=== PATIENT | female | born 1955 | race Caucasian/White ===

== ENCOUNTER 2018-01-03 11:08 | Outpatient (CLI) | payer OTHER | END 2018-01-03 11:09 | disposition home or self-care (01) | LOC: BICRAD 11:08 | PROVIDERS: ATTEND Family Medicine | DX: R07.81 Pleurodynia (principal) ==

== ENCOUNTER 2018-05-15 09:01 | Outpatient (CLI) | payer OTHER | END 2018-05-15 09:02 | disposition home or self-care (01) | LOC: BICMAMMO 09:01 | PROVIDERS: ATTEND Internal Medicine Hematology & Oncology | DX: Z08 Encounter for follow-up examination after completed treatment for malignant neoplasm (principal); Z85.3 Personal history of malignant neoplasm of breast | CPT/HCPCS: 77066; G0279 ==

== ENCOUNTER 2018-05-19 12:14 | Outpatient (CLI) | payer OTHER | END 2018-05-19 12:15 | disposition home or self-care (01) | LOC: BICULT 12:14 | DX: R22.1 Localized swelling, mass and lump, neck (principal) | CPT/HCPCS: 76536 ==

== ENCOUNTER 2018-07-08 08:46 | Outpatient (CLI) | payer OTHER ==
--- NOTE | 2018-07-08 14:17 | CT ---
POST CONTRAST SOFT TISSUE NECK CT: History: Past medical history of sialadenitis. Bilateral neck swelling x two months. Comparison: None. Technique: Post contrast soft tissue neck CT is performed in the axial plane. Reformatted images are submitted for interpretation. FINDINGS: Adequate aeration of the visualized paranasal sinuses and mastoid air cells. Visualized brain parenchyma is unremarkable. Aerodigestive tract is patent. No mucosal abnormality. Midline fatty roof of the tongue is preserved. Symmetric attenuation of the parotid and submandibular glands. There is fatty replacement of both par otid glands. Symmetric attenuation of the sternocleidomastoid muscles. Visualized upper mediastinum and lung apices are unremarkable. There is evidence of degenerative changes of uncal vertebral joints with facet hypertrophy. No eviden ce of high grade central canal stenosis. Mild/mild to moderate narrowing of the neural foramina at mu ltiple levels. IMPRESSION: 1. No CT evidence of sialadenitis. 2. No evidence of a neck mass. POS: [facility]
== END 2018-07-08 08:47 | disposition home or self-care (01) ==
LOC: BICCT 08:46
PROVIDERS: ATTEND Otolaryngology Plastic Surgery within the Head & Neck
DX: K11.20 Sialoadenitis, unspecified (principal)
CPT/HCPCS: 70491; 82565

== ENCOUNTER 2018-10-01 09:38 | Outpatient (CLI) | payer OTHER ==
--- NOTE | 2018-10-01 10:55 | BD ---
DEXA BONE DENSITY STUDY: Date: 10/01/18 INDICATION: Unspecific menopausal and perimenopausal disorder; osteoporosis screening evaluation. COMPARISON: 09/26/16. FINDINGS: Lumbar Spine: BMD (g/cm2) L1 0.922 T-Score: -0.6 Z-Score: -0.9 L2 1.070 T-Score: 0.4 Z-Score: 2.1 L3 1.133 T-Score: 0.4 Z-Score: 2.3 L4 1.098 T-Score: 0.3 Z-Score: 2.2 L1-L4 1.065 T-Score: 0.2 Z-Score: 1.9 Bone mineral density of the L1-L4 region is not appreciably changed from comparison in 2017. Left Femoral Neck: 0.782 T-Score: -0.6 Z-Score: 0.9 Total Femur: 1.078 T-Score: 1.1 Z-Score: 2.3 IMPRESSION: Based on WHO criteria, the patient's bone mineral density is normal. The patient is at low risk for f racture. POS: [facility]
== END 2018-10-01 09:39 | disposition home or self-care (01) ==
LOC: BICMAMMO 09:38
PROVIDERS: ATTEND Internal Medicine Hematology & Oncology
DX: Z13.820 Encounter for screening for osteoporosis (principal); C50.312 Malignant neoplasm of lower-inner quadrant of left female breast; N95.9 Unspecified menopausal and perimenopausal disorder
CPT/HCPCS: 77080

== ENCOUNTER 2019-01-22 13:08 | Outpatient (CLI) | payer MEDICARE, OTHER ==
--- NOTE | 2019-01-22 14:44 | MMO ---
Left Breast MAMMO Unilat Diag DDI LT+ROBERTO. CLINICAL HISTORY: Patient is 63 years old and is seen for diagnostic exam and pain in the lower-outer region of the left breast. The patient has no family history of breast cancer. The patient has a history of Lumpectomy procedure revealed invasive mammary carcinoma with lobular features in the left breast in May, and Ultrasound Guided Core Biopsy procedure revealed invasive ductal left breast carcinoma in April,. VIEWS: The views performed were: left craniocaudal with tomosynthesis; left mediolateral oblique with tomosynthesis; left mediolateral; and left exaggerated craniocaudal. FILMS COMPARED: The present examination has been compared to prior imaging studies performed at [facility] on 04/15/2014, 04/24/2016, 04/30/2017, 05/15/2018 and 01/22/2019. MAMMOGRAM FINDINGS: There are scattered fibroglandular densities. Finding 1: There are stable post operative changes seen in the left breast. Finding 2: There are stable benign appearing calcifications seen in the left breast. Finding 3: There are no mammographic or sonographic abnormalities to explain the patient's breast pain. The patient is referred back to her clinician. Negative imaging findings should not preclude biopsy if clinical findings are suspicious. There are no suspicious masses, suspicious calcifications, or new areas of architectural distortion. IMPRESSION: FINDING 3: THERE ARE NO MAMMOGRAPHIC ABNORMALITIES TO EXPLAIN THE PATIENT'S BREAST PAIN. THE PATIENT IS REFERRED BACK TO HER CLINICIAN. NEGATIVE IMAGING FINDINGS SHOULD NOT PRECLUDE BIOPSY IF CLINICAL FINDINGS ARE SUSPICIOUS. A ROUTINE FOLLOW-UP MAMMOGRAM IN 1 YEAR IS RECOMMENDED. THE RESULTS OF THIS EXAM WERE SENT TO THE PATIENT. ACR BI-RADS Category 2 - Benign finding MAMMOGRAPHY NOTE: 1. A negative mammogram report should not delay a biopsy if a dominant of clinically suspicious mass is present. 2. Approximately 10% to 15% of breast cancers are not detected by mammography. 3. Adenosis and dense breasts may obscure an underlying neoplasm.
--- NOTE | 2019-01-22 14:55 | ULT ---
LIMITED LEFT BREAST ULTRASOUND: DATE: 01/22/2019. PROVIDED CLINICAL HISTORY: Left breast pain. FINDINGS: Limited sonographic interrogation was performed of the 3 o'clock position of the left breast and left axilla in the regions of patient pain. The sonographic appearance of the tissues in these regions i s normal. IMPRESSION: No sonographic or mammographic abnormalities are apparent in the region of the patient's breast pain. Negative imaging findings should not preclude further evaluation of a clinically suspicious finding . The patient is referred back to her clinician. BIRADS category 2 - benign findings. POS: [facility]
--- NOTE | 2019-01-22 15:04 | RAD ---
RIGHT KNEE 4 VIEW SERIES: INDICATION: Pain. FINDINGS: No acute fracture or dislocation. No significant joint capsular distention. There is mild osteoarth ritis. IMPRESSION: No acute osseous abnormality of the right knee. POS: [facility]
== END 2019-01-22 13:09 | disposition home or self-care (01) ==
LOC: BICMAMMO 13:08
PROVIDERS: ATTEND Family Medicine
DX: N64.4 Mastodynia (principal); R59.0 Localized enlarged lymph nodes; M25.561 Pain in right knee; Z85.3 Personal history of malignant neoplasm of breast
CPT/HCPCS: 73564; 76642; 77065; G0279

== ENCOUNTER 2019-07-29 10:17 | Outpatient (CLI) | payer MEDICARE, MEDICAID ==
--- NOTE | 2019-07-29 10:42 | ULT ---
Exam: Bilateral renal ultrasound HISTORY: Chronic kidney disease. Hypertension. COMPARISON: None FINDINGS: Right kidney: Normal cortical echotexture. No hydronephrosis. Right kidney measurements: 10.6 x 5.1 x 5.1 cm. Left kidney: Normal cortical echotexture. No hydronephrosis Left kidney measurements 9.6 x 5.3 x 5.4 cm. Urinary bladder: Normal mucosa. IMPRESSION: No hydronephrosis.
== END 2019-07-29 10:18 | disposition home or self-care (01) ==
LOC: BICULT 10:17
PROVIDERS: ATTEND Internal Medicine Nephrology
DX: I12.9 Hypertensive chronic kidney disease with stage 1 through stage 4 chronic kidney disease, or unspecified chronic kidney disease (principal); N18.3 Chronic kidney disease, stage 3 (moderate)
CPT/HCPCS: 76770

== ENCOUNTER 2020-05-19 08:07 | Outpatient (CLI) | payer MEDICARE, MEDICAID ==
--- NOTE | 2020-05-19 08:42 | MMO ---
Bilateral MAMMO Bilat Diag DDI+ROBERTO. CLINICAL HISTORY: Patient is 64 years old and is seen for diagnostic exam. The patient has no family history of breast cancer. The patient has a history of lumpectomy procedure revealed invasive mammary carcinoma with lobular features in the left breast in May, and Ultrasound guided core biopsy procedure revealed invasive ductal left breast carcinoma in April,. VIEWS: The views performed were: bilateral craniocaudal with tomosynthesis; bilateral mediolateral oblique with tomosynthesis; and bilateral mediolateral with tomosynthesis. FILMS COMPARED: The present examination has been compared to prior imaging studies performed at [facility] on 05/15/2018, 01/22/2019 and 05/18/2019. This study has been interpreted with the assistance of computer-aided detection. MAMMOGRAM FINDINGS: There are scattered fibroglandular densities. Finding 1: There are stable benign appearing calcifications seen in both breasts. Finding 2: There is a stable area of architectural distortion with associated post-surgical scar seen in the left breast. There are no suspicious masses, suspicious calcifications, or new areas of architectural distortion. IMPRESSION: THERE IS NO MAMMOGRAPHIC EVIDENCE OF MALIGNANCY. A ROUTINE FOLLOW-UP MAMMOGRAM IN 1 YEAR IS RECOMMENDED. THE RESULTS OF THIS EXAM WERE SENT TO THE PATIENT. ACR BI-RADS Category 2 - Benign finding MAMMOGRAPHY NOTE: 1. A negative mammogram report should not delay a biopsy if a dominant of clinically suspicious mass is present. 2. Approximately 10% to 15% of breast cancers are not detected by mammography. 3. Adenosis and dense breasts may obscure an underlying neoplasm. Reported by: IDANIA BHAT MD Electonically Signed: [id number]
== END 2020-05-19 08:08 | disposition home or self-care (01) ==
LOC: BICMAMMO 08:07
PROVIDERS: ATTEND Internal Medicine Hematology & Oncology
DX: Z08 Encounter for follow-up examination after completed treatment for malignant neoplasm (principal); Z85.3 Personal history of malignant neoplasm of breast
CPT/HCPCS: 77066; G0279

== ENCOUNTER 2020-05-19 08:12 | Outpatient (CLI) | payer MEDICARE, MEDICAID ==
--- NOTE | 2020-05-19 10:01 | RAD ---
CHEST 2 VIEWS: Date: 05/19/2020 HISTORY: Wheezing and shortness of breath. FINDINGS: Heart size is normal. The lungs are clear. No confluent pneumonia, overt edema, or pleural effusion. IMPRESSION: No significant acute intrathoracic disease. Stable from prior study. POS: [facility]
== END 2020-05-19 08:13 | disposition home or self-care (01) ==
LOC: BICRAD 08:12
PROVIDERS: ATTEND Family Medicine
DX: R06.2 Wheezing (principal); R06.02 Shortness of breath
CPT/HCPCS: 71046

== ENCOUNTER 2020-11-18 10:11 | Outpatient (CLI) | payer MEDICARE, MEDICAID ==
--- NOTE | 2020-11-18 18:26 | BD ---
Exam: DEXA Bone Density 11/18/20 INDICATION: Postmenopausal osteoporosis screening. COMPARISON: Prior dated 10/01/18. FINDINGS: Lumbar Spine: BMD (g/cm2) T-SCORE Z-SCORE L1 0.965 -0.2 1.5 L2 1.068 0.4 2.2 L3 1.132 0.4 2.4 L4 1.097 0.3 2.4 L1-L4 1.071 0.2 2.1 Left Femoral Neck: 0.780 -0.6 1.0 Total Femur: 1.106 1.3 2.7 When compared to the prior examination, bone mineral density of the left total hip region has improve d 2.6% from the baseline. Impression: Based on WHO criteria, patient's bone mineral density is normal. The patient's bone mineral density i s slightly improved when compared to the prior in 2019. POS: [facility]
== END 2020-11-18 10:12 | disposition home or self-care (01) ==
LOC: BICMAMMO 10:11
PROVIDERS: ATTEND Internal Medicine Hematology & Oncology
DX: Z13.820 Encounter for screening for osteoporosis (principal); N95.8 Other specified menopausal and perimenopausal disorders
CPT/HCPCS: 77080

== ENCOUNTER 2020-12-28 07:47 | Outpatient (CLI) | payer MEDICARE, MEDICAID | END 2020-12-28 07:48 | disposition home or self-care (01) | LOC: BICULT 07:47 | PROVIDERS: ATTEND Family Medicine | DX: R74.01 Elevation of levels of liver transaminase levels (principal); K76.0 Fatty (change of) liver, not elsewhere classified; K80.20 Calculus of gallbladder without cholecystitis without obstruction | CPT/HCPCS: 76705 ==

== ENCOUNTER 2021-07-05 10:03 | Outpatient (CLI) | payer MEDICARE, MEDICAID | END 2021-07-05 10:04 | disposition home or self-care (01) | LOC: BICMAMMO 10:03 | PROVIDERS: ATTEND Internal Medicine Hematology & Oncology | DX: Z08 Encounter for follow-up examination after completed treatment for malignant neoplasm (principal); Z85.3 Personal history of malignant neoplasm of breast | CPT/HCPCS: 77066; G0279 ==

== ENCOUNTER 2021-08-04 09:32 | Outpatient (CLI) | payer MEDICARE, MEDICAID ==
[2021-08-04 11:25] LABS: #Basophils 0.1 10x3/uL (0.0-0.2); #Eosinphils 0.2 10x3/uL (0.0-0.5); #Monocytes 0.9 10x3/uL (0.0-1.1); #Neutrophils 4.3 10x3/uL (1.5-8.4); %Basophils 0.9 % (0.0-2.0); %Eosinophils 2.3 % (0.0-6.0); %Lymphocytes 28.9 % (18.0-47.0); %Monocytes 11.6 % (0.0-10.0); %Neutrophils 55.5 % (40.0-75.0); Hemoglobin 13.2 g/dL (12.0-15.5); Mean Corpuscular HGB CONC 33.3 g/dL (32.0-36.0); Mean Corpuscular Hemoglobin 29.7 pg (27.0-33.0); Mean Corpuscular Volume 89.2 fl (81.6-98.3); Mean Platelet Volume 10.5 fl (7.4-10.4); Platelet Count 247 10x3/uL (150-450); RBC Distribution Width 12.9 % (11.5-14.5); Red Blood Cell (RBC) Count 4.44 10x6/uL (3.90-5.03); White Blood Cell (WBC) Count 7.8 10x3/uL (3.5-10.5)
[2021-08-04 12:14] LABS: ALT (SGPT) 22 U/L (8-55); AST (SGOT) 19 U/L (5-34); Albumin 4.3 g/dL (3.4-4.8); Alkaline Phosphatase 85 U/L (40-110); Anion Gap 17 mmol/L (10-20); BUN (Urea Nitrogen) 28 mg/dL (9.8-20.1); Bilirubin, Direct 0.1 mg/dL (0.1-0.3); Bilirubin, Total 0.4 mg/dL (0.2-1.2); Calc. Creatinine Clearance 0 mL/min (70-130); Calcium 9.2 mg/dL (7.8-10.44); Carbon Dioxide 20 mmol/L (23-31); Chloride 106 mmol/L (98-107); Globulin 3.3 g/dL (2.4-3.5); Glucose 142 mg/dL (80-115); Potassium 4.6 mmol/L (3.5-5.1); Protein, Total 7.6 g/dL (5.8-8.1); Sodium 138 mmol/L (136-145)
[2021-08-04 17:28] LABS: SARS-CoV-2 PCR by NAA Not Detected (NotDetected)
== END 2021-08-04 09:33 | disposition home or self-care (01) ==
LOC: LABBT 09:32
PROVIDERS: ATTEND Surgery
DX: Z01.818 Encounter for other preprocedural examination (principal); K80.20 Calculus of gallbladder without cholecystitis without obstruction; Z20.822 Contact with and (suspected) exposure to COVID-19
CPT/HCPCS: 80053; 80076; 85025; 93005; U0003; U0005; 93010

== ENCOUNTER 2021-08-09 05:55 | Day surgery (SDC) | payer MEDICARE, MEDICAID ==
[2021-08-08 10:03] VITALS: BMI 39.8
[2021-08-09] MEDS ORDERED: Fentanyl 100 MCG/2 ML VIAL ONE ×3 (06:50→09:58)
[2021-08-09] MEDS ORDERED: Bupivacaine 0.25% HCL 30 ML VIAL ONE (06:55)
[2021-08-09] MEDS ORDERED: Lidocaine 1% w/Epinephrine 1:100K 20 ML VIAL ONE (06:55)
[2021-08-09] MEDS ORDERED: cefOXitin Sodium/Dextrose 2 GM/50 ML BAG ONE (07:43)
[2021-08-09] MEDS ORDERED: ePHEDrine 50 MG/ML VIAL ONE (08:08)
[2021-08-09] MEDS ORDERED: Dexamethasone 20 MG/5 ML VIAL ONE (08:08)
[2021-08-09] MEDS ORDERED: Ondansetron PF 4 MG/2 ML Vial ONE (08:08)
[2021-08-09] MEDS ORDERED: Rocuronium Bromide 10 MG/ML (10ML VIAL) ONE (08:08)
[2021-08-09] MEDS ORDERED: Propofol 1,000 MG/100 ML VIAL IV ONE (08:08)
[2021-08-09] MEDS ORDERED: Ketorolac Tromethamine 30 MG/ML VIAL ONE (08:08)
[2021-08-09] MEDS ORDERED: Glycopyrrolate 0.2 MG/ML 5 ML SYRINGE ONE (08:08)
[2021-08-09] MEDS ORDERED: Midazolam HCl 2 mg/2 ml Vial ONE (08:54)
[2021-08-09] MEDS ORDERED: HYDROcodone/Acetaminophen 5/325 mg Tablet ONE (11:29)
== END 2021-08-09 11:40 | disposition home or self-care (01) ==
LOC: SDC 05:55
PROVIDERS: ATTEND Surgery
PROC: 0FT44ZZ Resection of Gallbladder, Percutaneous Endoscopic Approach (ICD-10-PCS; principal; 2021-08-09)
DX: K80.10 Calculus of gallbladder with chronic cholecystitis without obstruction (principal); I10 Essential (primary) hypertension; Z85.3 Personal history of malignant neoplasm of breast; Z79.811 Long term (current) use of aromatase inhibitors; Z79.82 Long term (current) use of aspirin; Z79.84 Long term (current) use of oral hypoglycemic drugs; Z79.899 Other long term (current) drug therapy; Z88.1 Allergy status to other antibiotic agents
CPT/HCPCS: 88304; J0694; J1100; J1885; J2250; J2405; J2704; J3010; J3490; S0020

== ENCOUNTER 2022-05-14 12:28 | Emergency (ER) | payer MEDICARE, MEDICAID ==
[2022-05-14] MEDS ORDERED: Acetaminophen 500 MG TAB ONE (13:15)
== END 2022-05-14 14:56 | disposition home or self-care (01) ==
LOC: ERS 12:28
DX: S82.61XA Displaced fracture of lateral malleolus of right fibula, initial encounter for closed fracture (principal); S80.211A Abrasion, right knee, initial encounter; I10 Essential (primary) hypertension; W10.2XXA Fall (on)(from) incline, initial encounter; Z85.3 Personal history of malignant neoplasm of breast

== ENCOUNTER 2022-07-17 10:32 | Outpatient (CLI) | payer MEDICARE, MEDICAID | END 2022-07-17 10:33 | disposition home or self-care (01) | LOC: BICMAMMO 10:32 | PROVIDERS: ATTEND Family Medicine | DX: Z12.31 Encounter for screening mammogram for malignant neoplasm of breast (principal); Z98.890 Other specified postprocedural states; Z85.3 Personal history of malignant neoplasm of breast | CPT/HCPCS: 77063; 77067 ==

== ENCOUNTER 2023-01-11 17:07 | Inpatient (IN) | payer MEDICARE, MEDICAID ==
[2023-01-11 18:10] LABS: #Basophils 0.1 thou/uL (0.0-0.2); #Eosinphils 0.2 thou/uL (0.0-0.7); #Lymphocytes 2.3 thou/uL (1.20-3.40); #Monocytes 1.1 thou/uL (0.11-0.59); #Neutrophils 8.1 thou/uL (1.40-6.50); %Basophils 0.4 % (0.0-1.0); %Eosinophils 1.8 % (0.0-10.0); %Lymphocytes 19.2 % (21.0-51.0); %Monocytes 9.4 % (0.0-10.0); %Neutrophils 69.2 % (42.0-75.0); Hemoglobin 13.8 g/dL (12.0-16.0); Mean Corpuscular HGB CONC 33.4 g/dL (32.0-36.0); Mean Corpuscular Hemoglobin 30.7 pg (27.0-31.0); Mean Corpuscular Volume 92.1 fl (78.0-98.0); Mean Platelet Volume 8.5 fL (7.4-10.4); Platelet Count 253 10x3/uL (130-400); RBC Distribution Width 12.5 % (11.5-14.5); White Blood Cell (WBC) Count 11.7 10x3/uL (4.8-10.8)
[2023-01-11 18:32] LABS: ALT (SGPT) 20 U/L (8-55); AST (SGOT) 16 U/L (5-34); Alkaline Phosphatase 92 U/L (40-110); Anion Gap 15 mmol/L (10-20); BUN (Urea Nitrogen) 42 mg/dL (9.8-20.1); Bilirubin, Total 0.3 mg/dL (0.2-1.2); Calc. Creatinine Clearance 0 mL/min (70-130); Calcium 8.7 mg/dL (7.8-10.44); Carbon Dioxide 21 mmol/L (23-31); Chloride 103 mmol/L (98-107); Estimated GFR 34; Globulin 3.2 g/dL (2.4-3.5); Glucose 97 mg/dL (80-115); Lipase 41 U/L (8-78); Protein, Total 7.2 g/dL (5.8-8.1); Sodium 134 mmol/L (136-145)
[2023-01-11] MEDS ORDERED: Aspirin Chewable 81 MG TAB ONE (19:03)
[2023-01-11] MEDS ORDERED: Dextrose 50% Abboject 50 ML SYRINGE SLOW IVP PRN (19:56)
[2023-01-11] MEDS ORDERED: HumaLOG 300 UNITS/3 ML VIAL SC PRN ×2 (19:56)
[2023-01-11] MEDS ORDERED: Dextrose 5% in Water 1,000 ML IV PRN (19:56)
[2023-01-11] MEDS ORDERED: Nitroglycerin 0.4 MG TAB (25 Tab Bottle) SL PRN (20:09)
[2023-01-11] MEDS ORDERED: Acetaminophen 325 MG TAB PO PRN (20:09)
[2023-01-11] MEDS ORDERED: Ondansetron PF 4 MG/2 ML Vial IVP PRN (20:09)
[2023-01-11] MEDS ORDERED: Ondansetron ODT 4 MG TAB PO PRN (20:09)
[2023-01-11] MEDS ORDERED: Sodium Chloride 0.9% 500 ML IV SCH (20:30)
[2023-01-11 22:04] LABS: Troponin I Less than 0.010 ng/mL (< 0.028)
[2023-01-11] MEDS: HYDROcodone/Acetaminophen 5/325 mg Tablet PO PRN (22:37)
[2023-01-12 01:16] LABS: Troponin I Less than 0.010 ng/mL (< 0.028)
[2023-01-12 04:55] LABS: #Basophils 0.1 thou/uL (0.0-0.2); #Eosinphils 0.3 thou/uL (0.0-0.7); #Lymphocytes 2.4 thou/uL (1.20-3.40); #Monocytes 1.1 thou/uL (0.11-0.59); #Neutrophils 6.3 thou/uL (1.40-6.50); %Basophils 0.6 % (0.0-1.0); %Eosinophils 2.6 % (0.0-10.0); %Lymphocytes 23.2 % (21.0-51.0); %Monocytes 11.1 % (0.0-10.0); %Neutrophils 62.5 % (42.0-75.0); Hemoglobin 13.2 g/dL (12.0-16.0); Mean Corpuscular HGB CONC 34.2 g/dL (32.0-36.0); Mean Corpuscular Hemoglobin 31.5 pg (27.0-31.0); Mean Corpuscular Volume 92.3 fl (78.0-98.0); Mean Platelet Volume 8.1 fL (7.4-10.4); Platelet Count 246 10x3/uL (130-400); RBC Distribution Width 12.6 % (11.5-14.5); Red Blood Cell (RBC) Count 4.18 mill/uL (4.20-5.40); White Blood Cell (WBC) Count 10.1 10x3/uL (4.8-10.8)
[2023-01-12 05:11] LABS: Anion Gap 14 mmol/L (10-20); BUN (Urea Nitrogen) 38 mg/dL (9.8-20.1); Calc. Creatinine Clearance 67 mL/min (70-130); Calcium 9.1 mg/dL (7.8-10.44); Carbon Dioxide 20 mmol/L (23-31); Cardiac Risk 3.6 (Less than 4.5); Chloride 106 mmol/L (98-107); Cholesterol 115 mg/dl (< 200 Desired); Estimated GFR 43; Glucose 103 mg/dL (80-115); HDL Cholesterol 32 mg/dL (>60 Neg Risk); LDL Cholesterol, Calculated 55 mg/dL; Potassium 4.1 mmol/L (3.5-5.1); Sodium 136 mmol/L (136-145); Triglycerides 138 mg/dL (Less than 150)
[2023-01-12] MEDS: Levothyroxine Sodium 112 MCG TAB PO SCH (05:37)
[2023-01-12 06:20] VITALS: BMI 40.6
[2023-01-12] MEDS: Acyclovir 400 mg Tablet PO SCH ×2 (08:00→21:39)
[2023-01-12] MEDS ORDERED: Famotidine 20 MG TAB PO SCH (09:00)
[2023-01-12] MEDS ORDERED: ADENOSINE 60 MG/20 ML SDV ONE (09:07)
[2023-01-12] MEDS: Aspirin Chewable 81 MG TAB PO SCH (11:37)
[2023-01-12] MEDS: Carvedilol 25 MG TAB PO SCH ×2 (11:37→16:50)
[2023-01-12] MEDS: HYDROcodone/Acetaminophen 5/325 mg Tablet PO PRN (11:38)
[2023-01-12] MEDS: Melatonin 3 MG TAB PO SCH (21:39)
[2023-01-12] MEDS: Simvastatin 10 MG TAB PO SCH (21:39)
[2023-01-13 05:01] LABS: #Eosinphils 0.2 thou/uL (0.0-0.7); #Lymphocytes 2.2 thou/uL (1.20-3.40); #Neutrophils 5.5 thou/uL (1.40-6.50); %Basophils 0.5 % (0.0-1.0); %Eosinophils 2.7 % (0.0-10.0); %Lymphocytes 24.7 % (21.0-51.0); %Monocytes 11.1 % (0.0-10.0); %Neutrophils 60.9 % (42.0-75.0); Mean Corpuscular HGB CONC 33.7 g/dL (32.0-36.0); Mean Corpuscular Hemoglobin 30.7 pg (27.0-31.0); Mean Platelet Volume 7.9 fL (7.4-10.4); Platelet Count 233 10x3/uL (130-400); RBC Distribution Width 12.6 % (11.5-14.5); Red Blood Cell (RBC) Count 4.24 mill/uL (4.20-5.40)
[2023-01-13 05:17] LABS: Anion Gap 12 mmol/L (10-20); BUN (Urea Nitrogen) 27 mg/dL (9.8-20.1); Calc. Creatinine Clearance 81 mL/min (70-130); Calcium 9.2 mg/dL (7.8-10.44); Carbon Dioxide 22 mmol/L (23-31); Chloride 105 mmol/L (98-107); Estimated GFR 56; Glucose 107 mg/dL (80-115); Potassium 4.1 mmol/L (3.5-5.1); Sodium 135 mmol/L (136-145)
[2023-01-13] MEDS: Levothyroxine Sodium 112 MCG TAB PO SCH (06:18)
[2023-01-13] MEDS: Cholecalciferol 1,000 UNITS (25 MCG) TAB PO SCH (09:21)
[2023-01-13] MEDS: Aspirin Chewable 81 MG TAB PO SCH (09:21)
[2023-01-13] MEDS: Carvedilol 25 MG TAB PO SCH ×2 (09:21→16:12)
[2023-01-13] MEDS: Acyclovir 400 mg Tablet PO SCH ×2 (09:21→19:25)
[2023-01-13] MEDS: Bupropion 150 MG SR TAB PO SCH (09:21)
[2023-01-13] MEDS ORDERED: Iopamidol-370 76% 500 ML MDV (1 ML CHARGE) ONE (15:48)
[2023-01-13] MEDS: HYDROcodone/Acetaminophen 5/325 mg Tablet PO PRN (19:25)
[2023-01-13] MEDS: Melatonin 3 MG TAB PO SCH (19:25)
[2023-01-13] MEDS: Simvastatin 10 MG TAB PO SCH (19:25)
[2023-01-13] MEDS: ALPRAZolam 0.5 MG TAB PO PRN (20:56)
[2023-01-14 04:30] LABS: #Basophils 0.1 thou/uL (0.0-0.2); #Eosinphils 0.3 thou/uL (0.0-0.7); #Monocytes 1.1 thou/uL (0.11-0.59); #Neutrophils 5.5 thou/uL (1.40-6.50); %Basophils 0.8 % (0.0-1.0); %Eosinophils 3.3 % (0.0-10.0); %Lymphocytes 22.1 % (21.0-51.0); %Neutrophils 61.7 % (42.0-75.0); Hemoglobin 13.4 g/dL (12.0-16.0); Mean Corpuscular HGB CONC 34.5 g/dL (32.0-36.0); Mean Corpuscular Hemoglobin 31.3 pg (27.0-31.0); Mean Corpuscular Volume 90.7 fl (78.0-98.0); Platelet Count 236 10x3/uL (130-400); RBC Distribution Width 12.5 % (11.5-14.5); Red Blood Cell (RBC) Count 4.28 mill/uL (4.20-5.40)
[2023-01-14 04:42] LABS: Anion Gap 15 mmol/L (10-20); BUN (Urea Nitrogen) 24 mg/dL (9.8-20.1); Calc. Creatinine Clearance 74 mL/min (70-130); Calcium 9.3 mg/dL (7.8-10.44); Carbon Dioxide 19 mmol/L (23-31); Chloride 105 mmol/L (98-107); Estimated GFR 50; Glucose 131 mg/dL (80-115); Potassium 3.9 mmol/L (3.5-5.1); Sodium 135 mmol/L (136-145)
[2023-01-14] MEDS: Levothyroxine Sodium 112 MCG TAB PO SCH (05:33)
[2023-01-14] MEDS: Aspirin Chewable 81 MG TAB PO SCH (09:27)
[2023-01-14] MEDS: Acyclovir 400 mg Tablet PO SCH ×2 (09:27→20:53)
[2023-01-14] MEDS: Carvedilol 25 MG TAB PO SCH ×2 (09:27→17:00)
[2023-01-14] MEDS: Bupropion 150 MG SR TAB PO SCH (09:28)
[2023-01-14] MEDS: Cholecalciferol 1,000 UNITS (25 MCG) TAB PO SCH (09:29)
[2023-01-14] MEDS: HYDROcodone/Acetaminophen 5/325 mg Tablet PO PRN ×2 (12:18→20:53)
[2023-01-14] MEDS: Melatonin 3 MG TAB PO SCH (20:53)
[2023-01-14] MEDS: Simvastatin 10 MG TAB PO SCH (20:53)
[2023-01-14] MEDS: ALPRAZolam 0.5 MG TAB PO PRN (20:53)
[2023-01-15 05:31] LABS: #Basophils 0.1 thou/uL (0.0-0.2); #Eosinphils 0.3 thou/uL (0.0-0.7); #Monocytes 0.9 thou/uL (0.11-0.59); #Neutrophils 4.6 thou/uL (1.40-6.50); %Basophils 0.8 % (0.0-1.0); %Eosinophils 3.2 % (0.0-10.0); %Lymphocytes 25.6 % (21.0-51.0); %Monocytes 11.9 % (0.0-10.0); %Neutrophils 58.5 % (42.0-75.0); Hemoglobin 13.2 g/dL (12.0-16.0); Mean Corpuscular HGB CONC 34.9 g/dL (32.0-36.0); Mean Corpuscular Volume 91.7 fl (78.0-98.0); Mean Platelet Volume 8.3 fL (7.4-10.4); Platelet Count 227 10x3/uL (130-400); RBC Distribution Width 12.5 % (11.5-14.5); Red Blood Cell (RBC) Count 4.14 mill/uL (4.20-5.40); White Blood Cell (WBC) Count 7.9 10x3/uL (4.8-10.8)
[2023-01-15] MEDS: Levothyroxine Sodium 112 MCG TAB PO SCH (05:51)
[2023-01-15 05:55] LABS: Anion Gap 13 mmol/L (10-20); BUN (Urea Nitrogen) 19 mg/dL (9.8-20.1); Calc. Creatinine Clearance 85 mL/min (70-130); Calcium 9.4 mg/dL (7.8-10.44); Carbon Dioxide 22 mmol/L (23-31); Chloride 106 mmol/L (98-107); Estimated GFR 60; Glucose 111 mg/dL (80-115); Potassium 3.9 mmol/L (3.5-5.1); Sodium 137 mmol/L (136-145)
[2023-01-15 07:47] VITALS: TEMP 97.9
[2023-01-15] MEDS: Aspirin Chewable 81 MG TAB PO SCH (09:05)
[2023-01-15] MEDS: Cholecalciferol 1,000 UNITS (25 MCG) TAB PO SCH (09:05)
[2023-01-15] MEDS: Acyclovir 400 mg Tablet PO SCH (09:06)
[2023-01-15] MEDS: Carvedilol 25 MG TAB PO SCH (09:06)
[2023-01-15] MEDS: Bupropion 150 MG SR TAB PO SCH (09:06)
[2023-01-15] MEDS: ALPRAZolam 0.5 MG TAB PO PRN (10:10)
[2023-01-15 11:24] VITALS: BP 121/65
[2023-01-15] MEDS: HYDROcodone/Acetaminophen 5/325 mg Tablet PO PRN (12:53)
== END 2023-01-15 13:47 | disposition home or self-care (01) | DRG 313 ==
LOC: ERS 17:07 → INTOOBSV 19:42 → 2NO 19:42 → OBSVTOIN 01-15 13:18
PROVIDERS: ADMIT Physician Assistant; ATTEND Hospitalist
DX: R07.89 Other chest pain (principal); N17.9 Acute kidney failure, unspecified; C79.51 Secondary malignant neoplasm of bone; Z66 Do not resuscitate; I12.9 Hypertensive chronic kidney disease with stage 1 through stage 4 chronic kidney disease, or unspecified chronic kidney disease; N18.2 Chronic kidney disease, stage 2 (mild); E78.5 Hyperlipidemia, unspecified; E11.22 Type 2 diabetes mellitus with diabetic chronic kidney disease; Z85.3 Personal history of malignant neoplasm of breast; Z88.1 Allergy status to other antibiotic agents; Z79.82 Long term (current) use of aspirin; Z79.890 Hormone replacement therapy; Z79.899 Other long term (current) drug therapy; Z87.891 Personal history of nicotine dependence; Z79.84 Long term (current) use of oral hypoglycemic drugs
CPT/HCPCS: 36415; 36416; 71045; 71275; 78306; 78452; 80048; 80053; 80061; 83690; 84145; 84484; 85025; 85379; 93005; 93017; 93306; A9500; G0378; J0153; J7050; Q9967

== ENCOUNTER → 2023-01-29 | Outpatient (CLI) | payer MEDICARE, MEDICAID | LOC: PET 12:30 | PROVIDERS: ATTEND Internal Medicine Hematology & Oncology | DX: C50.312 Malignant neoplasm of lower-inner quadrant of left female breast (principal); R93.7 Abnormal findings on diagnostic imaging of other parts of musculoskeletal system; C79.51 Secondary malignant neoplasm of bone | CPT/HCPCS: 78815; A9552 ==

== ENCOUNTER 2023-03-11 14:02 | Outpatient (CLI) | payer MEDICARE, MEDICAID | END 2023-03-11 14:03 | disposition home or self-care (01) | LOC: BICCT 14:02 | PROVIDERS: ATTEND Internal Medicine Hematology & Oncology | DX: C79.51 Secondary malignant neoplasm of bone (principal); C50.312 Malignant neoplasm of lower-inner quadrant of left female breast; R07.81 Pleurodynia; M89.9 Disorder of bone, unspecified | CPT/HCPCS: 71250 ==

== ENCOUNTER 2023-03-12 03:04 | Emergency (ER) | payer MEDICARE, MEDICAID ==
[2023-03-12] MEDS ORDERED: Morphine 4 MG/ML VIAL ONE (03:49)
[2023-03-12] MEDS ORDERED: Ketorolac Tromethamine 30 MG/ML VIAL ONE (03:49)
[2023-03-12 04:00] LABS: #Basophils 0.1 thou/uL (0.0-0.2); #Eosinphils 0.3 thou/uL (0.0-0.7); #Monocytes 0.8 thou/uL (0.11-0.59); #Neutrophils 6.9 thou/uL (1.40-6.50); %Basophils 0.8 % (0.0-1.0); %Eosinophils 2.6 % (0.0-10.0); %Lymphocytes 15.6 % (21.0-51.0); %Monocytes 8.6 % (0.0-10.0); %Neutrophils 71.7 % (42.0-75.0); Hemoglobin 13.1 g/dL (12.0-16.0); Mean Corpuscular Hemoglobin 30.3 pg (27.0-31.0); Mean Corpuscular Volume 94.7 fl (78.0-98.0); Mean Platelet Volume 10.5 fL (7.4-10.4); Platelet Count 221 10x3/uL (130-400); RBC Distribution Width 14.5 % (11.5-14.5); Red Blood Cell (RBC) Count 4.32 mill/uL (4.20-5.40); White Blood Cell (WBC) Count 9.6 10x3/uL (4.8-10.8)
[2023-03-12 04:59] LABS: Bacteria/HPF None Seen HPF (None Seen); Bilirubin Negative (Negative); Blood, Urine Negative (Negative); CAUTI Indications for Culture Fever or rigors; Clarity Clear (Clear); Glucose, Urine (Dipstick) Normal (Negative); Ketone, Urine Negative (Negative); Leukocyte Negative Leu/uL (Negative); Nitrite Negative (Negative); Protein, Urine (Dipstick) 30 mg/dL (Neg-Trace); RBC/HPF 0-3 HPF (0-3); Squamous Epithelial None Seen HPF (0-3); Urobilinogen 3 mg/dL (Less than 2); pH, Urine 5.5 (5.0-9.0)
[2023-03-12 05:02] LABS: Urine Culture Reflex No No
[2023-03-12 05:03] LABS: ALT (SGPT) 14 U/L (8-55); AST (SGOT) 20 U/L (5-34); Albumin 4.3 g/dL (3.4-4.8); Alkaline Phosphatase 80 U/L (40-110); Anion Gap 14 mmol/L (10-20); BUN (Urea Nitrogen) 28 mg/dL (9.8-20.1); Bilirubin, Total 0.2 mg/dL (0.2-1.2); Calc. Creatinine Clearance 0 mL/min (70-130); Carbon Dioxide 21 mmol/L (23-31); Chloride 106 mmol/L (98-107); Estimated GFR 35; Globulin 3.6 g/dL (2.4-3.5); Glucose 112 mg/dL (80-115); Lipase 13 U/L (8-78); Magnesium 1.7 mg/dL (1.6-2.6); Potassium 4.3 mmol/L (3.5-5.1); Protein, Total 7.9 g/dL (5.8-8.1); Sodium 137 mmol/L (136-145)
[2023-03-12] MEDS ORDERED: Iopamidol-370 76% 500 ML MDV (1 ML CHARGE) ONE (09:21)
== END 2023-03-12 07:15 | disposition home or self-care (01) ==
LOC: ERS 03:04
DX: R55 Syncope and collapse (principal); E86.0 Dehydration; E11.9 Type 2 diabetes mellitus without complications; E78.5 Hyperlipidemia, unspecified; I10 Essential (primary) hypertension; Z79.82 Long term (current) use of aspirin; Z79.84 Long term (current) use of oral hypoglycemic drugs; Z79.899 Other long term (current) drug therapy
CPT/HCPCS: 36415; 51701; 71045; 71275; 80053; 81001; 83690; 83735; 83880; 84443; 84484; 85025; 85379; 93005; 96374; 96375; J1885; J2270; Q9967

== ENCOUNTER 2023-05-14 11:13 | Outpatient (CLI) | payer MEDICARE, MEDICAID | END 2023-05-14 11:14 | disposition home or self-care (01) | LOC: ULT 11:13 | PROVIDERS: ATTEND Internal Medicine Hematology & Oncology | DX: Z51.11 Encounter for antineoplastic chemotherapy (principal); C50.312 Malignant neoplasm of lower-inner quadrant of left female breast; C79.51 Secondary malignant neoplasm of bone; I08.1 Rheumatic disorders of both mitral and tricuspid valves; I31.39 Other pericardial effusion (noninflammatory); Z79.899 Other long term (current) drug therapy | CPT/HCPCS: 93306 ==

== ENCOUNTER 2023-06-07 09:30 | Outpatient (CLI) | payer MEDICARE, MEDICAID | END 2023-06-07 09:31 | disposition home or self-care (01) | LOC: PET 09:30 | PROVIDERS: ATTEND Internal Medicine Hematology & Oncology | DX: C50.312 Malignant neoplasm of lower-inner quadrant of left female breast (principal); C79.51 Secondary malignant neoplasm of bone; J90 Pleural effusion, not elsewhere classified | CPT/HCPCS: 78815; A9552 ==

== ENCOUNTER 2023-06-25 13:49 | Outpatient (CLI) | payer MEDICARE, MEDICAID | END 2023-06-25 13:50 | disposition home or self-care (01) | LOC: SCSMRI 13:49 | PROVIDERS: ATTEND Internal Medicine Hematology & Oncology | DX: R41.3 Other amnesia (principal); H53.9 Unspecified visual disturbance; R26.81 Unsteadiness on feet; C79.51 Secondary malignant neoplasm of bone; C50.312 Malignant neoplasm of lower-inner quadrant of left female breast | CPT/HCPCS: 70553 ==

== ENCOUNTER → 2023-08-30 | Outpatient (CLI) | payer MEDICARE, MEDICAID | LOC: PET 08:45 | PROVIDERS: ATTEND Internal Medicine Hematology & Oncology | DX: C50.312 Malignant neoplasm of lower-inner quadrant of left female breast (principal); C79.51 Secondary malignant neoplasm of bone; M53.9 Dorsopathy, unspecified | CPT/HCPCS: 78815; A9552 ==

== ENCOUNTER 2023-09-30 21:51 | Emergency (ER) | payer MEDICARE, MEDICAID ==
[2023-09-30] MEDS ORDERED: Boostrix 0.5 ML (Tdap) VIAL (>/=7 yrs of age) ONE (22:35)
[2023-09-30] MEDS ORDERED: Morphine 4 MG/ML VIAL ONE (22:36)
[2023-09-30] MEDS ORDERED: Ondansetron PF 4 MG/2 ML Vial ONE (22:36)
[2023-09-30 22:55] LABS: #Basophils 0.1 thou/uL (0.0-0.2); #Eosinphils 0.4 thou/uL (0.0-0.7); #Monocytes 0.9 thou/uL (0.11-0.59); %Basophils 0.6 % (0.0-1.0); %Lymphocytes 16.3 % (21.0-51.0); %Monocytes 9.3 % (0.0-10.0); %Neutrophils 69.5 % (42.0-75.0); Hematocrit 34.1 % (36.0-47.0); Hemoglobin 11.7 g/dL (12.0-16.0); Mean Corpuscular HGB CONC 34.3 g/dL (32.0-36.0); Mean Corpuscular Hemoglobin 31.5 pg (27.0-31.0); Mean Corpuscular Volume 91.7 fl (78.0-98.0); Mean Platelet Volume 10.2 fL (7.4-10.4); Platelet Count 196 10x3/uL (130-400); RBC Distribution Width 14.3 % (11.5-14.5); Red Blood Cell (RBC) Count 3.72 mill/uL (4.20-5.40); White Blood Cell (WBC) Count 10.1 10x3/uL (4.8-10.8)
[2023-09-30 23:08] LABS: Prothrombin Time 13.8 sec (12.0-14.7)
[2023-09-30 23:09] LABS: PTT 28.3 sec (22.9-36.1)
[2023-09-30 23:29] LABS: ALT (SGPT) 13 U/L (8-55); AST (SGOT) 18 U/L (5-34); Alkaline Phosphatase 70 U/L (40-110); Anion Gap 14 mmol/L (10-20); BUN (Urea Nitrogen) 17 mg/dL (9.8-20.1); Bilirubin, Total 0.3 mg/dL (0.2-1.2); Calc. Creatinine Clearance 0 mL/min (70-130); Calcium 9.3 mg/dL (7.8-10.44); Carbon Dioxide 22 mmol/L (23-31); Chloride 106 mmol/L (98-107); Estimated GFR 55; Globulin 3.1 g/dL (2.4-3.5); Glucose 107 mg/dL (80-115); Potassium 3.9 mmol/L (3.5-5.1); Protein, Total 7.1 g/dL (5.8-8.1); Sodium 138 mmol/L (136-145)
[2023-10-01] MEDS ORDERED: Ondansetron PF 4 MG/2 ML Vial ONE (01:04)
[2023-10-01] MEDS ORDERED: Lidocaine/Transparent Dressing 1 EACH KIT ONE ×2 (01:08→02:58)
[2023-10-01] MEDS ORDERED: Acetaminophen 500 MG TAB ONE (01:09)
[2023-10-01] MEDS ORDERED: Fluorescein Opthalmic Strip ONE (03:02)
[2023-10-01] MEDS ORDERED: Proparacaine 0.5% Opth 15 ML BOT ONE (03:08)
[2023-10-01] MEDS ORDERED: Loperamide HCl 2 MG CAP ONE (03:11)
== END 2023-10-01 04:30 | disposition home or self-care (01) ==
LOC: ERS 21:51
DX: S01.111A Laceration without foreign body of right eyelid and periocular area, initial encounter (principal); I10 Essential (primary) hypertension; E11.9 Type 2 diabetes mellitus without complications; M79.89 Other specified soft tissue disorders; Z23 Encounter for immunization; Z79.899 Other long term (current) drug therapy; Z79.82 Long term (current) use of aspirin; W19.XXXA Unspecified fall, initial encounter
CPT/HCPCS: 12013; 36415; 70450; 70486; 71045; 72125; 80053; 85025; 85610; 85730; 86850; 86900; 86901; 90471; 90715; 96361; 96374; 96375; 96376; J2270; J2405

== ENCOUNTER 2023-10-09 15:52 | Emergency (ER) | payer MEDICARE, MEDICAID | END 2023-10-09 16:26 | disposition home or self-care (01) | LOC: ERS 15:52 | DX: S01.21XD Laceration without foreign body of nose, subsequent encounter (principal); S01.111D Laceration without foreign body of right eyelid and periocular area, subsequent encounter; I10 Essential (primary) hypertension; E11.9 Type 2 diabetes mellitus without complications; Z79.899 Other long term (current) drug therapy; Z79.82 Long term (current) use of aspirin; W19.XXXD Unspecified fall, subsequent encounter ==

== ENCOUNTER 2023-10-10 12:13 | Outpatient (CLI) | payer MEDICARE, MEDICAID | END 2023-10-10 12:14 | disposition home or self-care (01) | LOC: ULT 12:13 | PROVIDERS: ATTEND Internal Medicine Hematology & Oncology | DX: Z51.11 Encounter for antineoplastic chemotherapy (principal); C50.312 Malignant neoplasm of lower-inner quadrant of left female breast; C79.51 Secondary malignant neoplasm of bone; I08.1 Rheumatic disorders of both mitral and tricuspid valves; J90 Pleural effusion, not elsewhere classified; Z79.899 Other long term (current) drug therapy | CPT/HCPCS: 36415; 80048; 81003; 82040; 82570; 83735; 83970; 84100; 84156; 85025; 93306 ==

== ENCOUNTER 2024-04-02 12:04 | Outpatient (CLI) | payer MEDICARE, MEDICAID | END 2024-04-02 12:05 | disposition home or self-care (01) | LOC: ULT 12:04 | PROVIDERS: ATTEND Internal Medicine Hematology & Oncology | DX: Z51.11 Encounter for antineoplastic chemotherapy (principal); I42.7 Cardiomyopathy due to drug and external agent; C50.911 Malignant neoplasm of unspecified site of right female breast; C79.51 Secondary malignant neoplasm of bone; I08.8 Other rheumatic multiple valve diseases; Z79.899 Other long term (current) drug therapy | CPT/HCPCS: 93306 ==

== ENCOUNTER 2024-06-26 10:15 | Outpatient (CLI) | payer MEDICARE, MEDICAID | END 2024-06-26 10:16 | disposition home or self-care (01) | LOC: PET 10:15 | PROVIDERS: ATTEND Internal Medicine Hematology & Oncology | DX: C50.312 Malignant neoplasm of lower-inner quadrant of left female breast (principal); C79.51 Secondary malignant neoplasm of bone | CPT/HCPCS: 78815; A9552 ==

== ENCOUNTER 2024-10-14 16:42 | Emergency (ER) | payer MEDICARE, MEDICAID ==
[2024-10-14 18:38] LABS: #Basophils 0.04 10x3/uL (0.0-0.2); %Basophils 0.5 % (0.0-1.0); %Eosinophils 2.8 % (0.0-10.0); %Lymphocytes 22.8 % (21.0-51.0); %Monocytes 4.1 % (0.0-10.0); %Neutrophils 69.4 % (42.0-75.0); Hematocrit 31.1 % (36.0-47.0); Hemoglobin 10.4 g/dL (12.0-16.0); Mean Corpuscular HGB CONC 33.4 g/dL (32.0-36.0); Mean Corpuscular Hemoglobin 29.2 pg (27.0-31.0); Mean Corpuscular Volume 87.4 fL (78.0-98.0); Mean Platelet Volume 9.7 fL (7.4-10.4); Platelet Count 198 10x3/uL (130-400); RBC Distribution Width 15.1 % (11.5-14.5); Red Blood Cell (RBC) Count 3.56 mill/uL (4.20-5.40)
[2024-10-14 18:53] LABS: ALT (SGPT) 15 U/L (Less than 34); AST (SGOT) 23 U/L (11-34); Albumin 3.2 g/dL (3.1-4.5); Alkaline Phosphatase 96 U/L (40-110); Anion Gap 14 mmol/L (10-20); BUN (Urea Nitrogen) 33 mg/dL (9.8-20.1); Bilirubin, Total 0.4 mg/dL (0.3-1.2); Calc. Creatinine Clearance 0 mL/min (70-130); Calcium 8.7 mg/dL (7.8-10.44); Carbon Dioxide 23 mmol/L (23-31); Chloride 103 mmol/L (98-107); Estimated GFR 38; Globulin 3.6 g/dL (2.4-3.5); Glucose 80 mg/dL (80-115); Potassium 4.8 mmol/L (3.5-5.1); Protein, Total 6.8 g/dL (5.8-8.1); Sodium 135 mmol/L (136-145)
== END 2024-10-14 20:27 | disposition home or self-care (01) ==
LOC: ERS 16:42
DX: I95.9 Hypotension, unspecified (principal); E86.0 Dehydration; I10 Essential (primary) hypertension; E11.9 Type 2 diabetes mellitus without complications; Z79.82 Long term (current) use of aspirin; Z79.899 Other long term (current) drug therapy
CPT/HCPCS: 80053; 85025; 93005; 96360; 96361

== ENCOUNTER 2024-11-16 14:31 | Outpatient (CLI) | payer MEDICARE, MEDICAID ==
[2024-11-16] MEDS ORDERED: Iopamidol 370 76% 100 ML VIAL ONE (15:12)
== END 2024-11-16 14:32 | disposition home or self-care (01) ==
LOC: CT 14:31
PROVIDERS: ATTEND Internal Medicine Hematology & Oncology
DX: C50.312 Malignant neoplasm of lower-inner quadrant of left female breast (principal); C79.51 Secondary malignant neoplasm of bone; D70.8 Other neutropenia; M89.9 Disorder of bone, unspecified
CPT/HCPCS: 71275; Q9967

== ENCOUNTER 2025-05-06 09:30 | Outpatient (CLI) | payer MEDICARE, MEDICAID | END 2025-05-06 09:31 | disposition home or self-care (01) | LOC: PET 09:30 | PROVIDERS: ATTEND Nurse Practitioner Family | DX: C50.312 Malignant neoplasm of lower-inner quadrant of left female breast (principal); C79.51 Secondary malignant neoplasm of bone; D70.8 Other neutropenia | CPT/HCPCS: 78815; A9552 ==

== ENCOUNTER 2025-08-27 09:30 | Outpatient (CLI) | payer MEDICARE, MEDICAID | END 2025-08-27 09:31 | disposition home or self-care (01) | LOC: PET 09:30 | PROVIDERS: ATTEND Internal Medicine Hematology & Oncology | DX: C50.312 Malignant neoplasm of lower-inner quadrant of left female breast (principal); C79.51 Secondary malignant neoplasm of bone; D70.8 Other neutropenia | CPT/HCPCS: 78815; A9552 ==